=== PATIENT | male | born 1975 | race Hispanic/Latino ===

== ENCOUNTER 2018-12-07 10:14 | Emergency (ER) | payer SELFPAY ==
[2018-12-07 10:47] LABS: Bilirubin Negative (Negative); Blood, Urine Negative (Negative); Glucose, Urine (Dipstick) Negative (Negative); Leukocyte Negative (Negative); Nitrite Negative (Negative); Protein, Urine (Dipstick) Negative (Neg-Trace); Urobilinogen 0.2 mg/dL (0.2-1.0)
[2018-12-07 10:49] LABS: Clarity CLEAR (Clear)
== END 2018-12-07 11:05 | disposition home or self-care (01) ==
LOC: ERS 10:14
DX: R35.0 Frequency of micturition (principal)
CPT/HCPCS: 81003; 99283

== ENCOUNTER 2020-10-20 07:07 | Outpatient (CLI) | payer OTHER ==
--- NOTE | 2020-10-20 07:57 | ULT ---
COMPLETE ABDOMEN ULTRASOUND INDICATION: Abdominal bloating TECHNIQUE: Grayscale, color Doppler and spectral Doppler were obtained of the abdomen. COMPARISON: None FINDINGS: Liver: Mild increased echogenicity of the liver. No focal hepatic lesion. Main portal vein: Patent with appropriate hepatopedal flow Pancreas: Visualized aspects appeared normal. Gallbladder: Normal. No sonographic Hennessy's sign reported. Common bile duct:3.5 mm. Right kidney: The right kidney measured 10.1 x 5.6 x 5.6 cm. No focal renal lesion or hydronephrosis is evident. Left kidney: The left kidney measured 10.8 x 5.7 x 5.3 cm. There is a 1.7 cm cyst seen within the ant erior aspect of the left mid kidney Aorta and IVC: Appeared within normal limits. Spleen: 9.5cm in length. No focal splenic lesion is evident. Free fluid: None. IMPRESSION: 1. Normal sonographic evaluation of the abdomen. 2. Left renal cyst. 3. Mild fatty liver.
== END 2020-10-20 07:08 | disposition home or self-care (01) ==
LOC: BICULT 07:07
PROVIDERS: ATTEND Nurse Practitioner Family
DX: R14.0 Abdominal distension (gaseous) (principal); N28.1 Cyst of kidney, acquired; K76.0 Fatty (change of) liver, not elsewhere classified
CPT/HCPCS: 93975

== ENCOUNTER 2021-02-16 07:42 | Outpatient (CLI) | payer OTHER, SELFPAY ==
[2021-02-16] MEDS ORDERED: Iopamidol 370 76% 100 ML VIAL ONE (10:07)
== END 2021-02-16 07:43 | disposition home or self-care (01) ==
LOC: BICCT 07:42
PROVIDERS: ATTEND Nurse Practitioner Family
DX: R14.0 Abdominal distension (gaseous) (principal)
CPT/HCPCS: 74160; Q9967